=== PATIENT | male | born 1950 | race Caucasian/White ===

== ENCOUNTER → 2024-05-10 | Outpatient (CLI) | payer OTHER ==
[2024-05-10 10:00] LABS: CREATININE 0.8 mg/dL (0.5-1.3); POTASSIUM 4.5 mmol/L (3.5-5.1)
== END | disposition home or self-care (01) ==
LOC: LAB 08:50
PROVIDERS: ATTEND Internal Medicine Cardiovascular Disease
DX: I65.23 Occlusion and stenosis of bilateral carotid arteries (principal)
CPT/HCPCS: 36415; 80048

== ENCOUNTER → 2024-05-14 | Outpatient (CLI) | payer OTHER ==
[~2024-05-14] MED LIST: IOHEXOL-350 75 ML VIAL IV ONE
== END | disposition home or self-care (01) ==
LOC: RAH 10:32
PROVIDERS: ATTEND Internal Medicine Cardiovascular Disease
DX: I65.23 Occlusion and stenosis of bilateral carotid arteries (principal); M47.812 Spondylosis without myelopathy or radiculopathy, cervical region
CPT/HCPCS: 70498; Q9967

== ENCOUNTER → 2024-09-11 | Outpatient (CLI) | payer OTHER ==
[2024-09-11 12:24] LABS: CREATININE 0.8 mg/dL (0.5-1.3); POTASSIUM 4.8 mmol/L (3.5-5.1)
== END | disposition home or self-care (01) ==
LOC: LAB 10:23
PROVIDERS: ATTEND Internal Medicine Cardiovascular Disease
DX: I25.110 Atherosclerotic heart disease of native coronary artery with unstable angina pectoris (principal)
CPT/HCPCS: 36415; 80048

== ENCOUNTER → 2024-09-16 | Outpatient (CLI) | payer OTHER ==
[~2024-09-16] MED LIST changes: +IOHEXOL 350 MG/ML 100ML INFUS..BTL IV ONE; -IOHEXOL-350 75 ML VIAL IV ONE; +metoPROLOL tartRATE 1 MG/ML 5ML VIAL IV ONE
--- NOTE | 2024-09-16 14:37 | HMCIMG ---
CT CARDIAC ANGIO W/CONT. CCTA HISTORY: No additional history given. COMPARISON: None TECHNIQUE: Multiple sequential axial images of the chest were obtained along with the CT angiogram of the chest study. Patient was given 100 cc of Omnipaque through intravenous route. FINDINGS: There is no evidence of pulmonary nodule or parenchymal disease. No pleural effusion or pericardial effusion is seen. There is no evidence of pneumothorax. There are normal size mediastinal and hilar lymph nodes. The heart is not enlarged. Coronary arterial calcifications are seen. Degenerative changes of the thoracolumbar spine are present. IMPRESSION: 1. No evidence of pulmonary nodule or effusion is seen. Please see CT angiogram report of coronary arteries.
== END | disposition home or self-care (01) ==
LOC: RAH 07:39
PROVIDERS: ATTEND Internal Medicine Cardiovascular Disease
DX: I25.10 Atherosclerotic heart disease of native coronary artery without angina pectoris (principal); M47.815 Spondylosis without myelopathy or radiculopathy, thoracolumbar region
CPT/HCPCS: 75574; J3490 ×2; Q9967

== ENCOUNTER → 2024-10-23 | Outpatient (CLI) | payer OTHER ==
--- NOTE | 2024-10-23 16:43 | HMCIMG ---
MR SPINAL CANAL, LUMBAR WO CON HISTORY: Localized pain COMPARISON: None TECHNIQUE: MRI of the lumbar spine was performed utilizing multiple pulse sequences in axial , coronal and sagittal plane. Patient was not given contrast through intravenous route. FINDINGS: Orthopedic fixation plates and screws are seen traversing the L3, L4, L5 levels causing paramagnetic susceptibility artifacts limiting evaluation. Disc fusion is seen predominating at the L3-4 level. No abnormal signal intensity is seen of the visualized bony structure. No loss of vertebral height is seen. There is straightening of normal lumbar curvature which may be related to muscle spasm or positioning. Degenerative disc signals are present at all lumbar spine levels. Visualized distal conus is unremarkable. At the T12-L1 level, there is spondylotic disc with bilateral ligamentum flavum hypertrophy and right intraspinal synovial cyst measuring 3.9 x 3 mm causing anterior thecal sac compression with bilateral lateral recess stenosis and mild bilateral neural foraminal stenosis. The thecal sac measures approximately 9.4 mm in its anterior posterior dimension. At the L1-L2 level, there is spondylotic disc with mild bilateral ligamentum flavum hypertrophy causing anterior thecal sac compression with bilateral lateral recess stenosis and mild bilateral neural foraminal stenosis. The thecal sac measures approximately 9.1 mm in its anterior posterior dimension. At the L2-3 level, there is spondylotic disc with bilateral ligamentum flavum hypertrophy causing anterior thecal sac compression with bilateral lateral recess stenosis and bilateral neural foraminal stenosis. The thecal sac measures approximately 3.8 mm in its anterior posterior dimension. At the L3-4 level, there is spondylotic disc with laminectomy changes causing anterior thecal sac compression with bilateral lateral recess stenosis and mild bilateral neural foraminal stenosis. The thecal sac measures approximately 8.8 mm in its anterior posterior dimension. At the L4-5 level, there is spondylotic disc laminectomy changes causing anterior thecal sac compression with bilateral lateral recess stenosis and mild bilateral neural foraminal stenosis. The thecal sac measures approximately 8.3 mm in its anterior posterior dimension. At the L5-S1 level, there is spondylotic disc with mild bilateral ligamentum flavum hypertrophy causing anterior thecal sac compression with bilateral lateral recess stenosis and bilateral neural foraminal stenosis. The thecal sac measures approximately 9.9 mm in its anterior posterior dimension. IMPRESSION: 1. DJD of the lumbar spine spondylosis and postop changes as described above.
== END | disposition home or self-care (01) ==
LOC: RAH 13:48
PROVIDERS: ATTEND Family Medicine
DX: M47.816 Spondylosis without myelopathy or radiculopathy, lumbar region (principal); M48.061 Spinal stenosis, lumbar region without neurogenic claudication; M48.07 Spinal stenosis, lumbosacral region; M43.26 Fusion of spine, lumbar region; M51.26 Other intervertebral disc displacement, lumbar region; M96.1 Postlaminectomy syndrome, not elsewhere classified
CPT/HCPCS: 72148

== ENCOUNTER 2024-11-18 06:20 | Day surgery (SDC) | payer OTHER ==
[2024-11-14 10:10] VITALS: BP 149/66; PULSE 84; RESP 18; TEMP 98.1
--- NOTE | 2024-11-14 12:46 | HMCIMG ---
CHEST 1VW HISTORY: Preop COMPARISON: None FINDINGS: A frontal projection of the chest was obtained. No acute pulmonary infiltrates is seen. The heart is borderline enlarged. Prominent interstitial markings are seen. Degenerative changes are seen. Aortic calcifications are seen. IMPRESSION: 1. No acute pulmonary infiltrate is seen.
--- NOTE | 2024-11-14 12:54 | EKG ---
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
[2024-11-15 10:08] LABS: BASOPHILS # (AUTO) 0.02 K/uL (0.00-0.20); BASOPHILS % (AUTO) 0.6 % (0.0-5.0); EOSINOPHILS % (AUTO) 2.9 % (0.0-8.0); HEMATOCRIT 46.9 % (42-54); IMMATURE GRANULOCYTE ABSOLUTE 0.01 K/uL (0-1); LYMPHOCYTES % (AUTO) 28.8 % (21.0-51.0); MEAN CORPUSCULAR HGB CONC 33.7 g/dL (32.0-36.0); MONOCYTES # (AUTO) 0.3 K/uL (0.1-1.0); NEUTROPHILS % (AUTO) 58.4 % (40.0-77.0); PLATELET COUNT (AUTO) 129 K/uL (130-400); RED BLOOD CELL COUNT(AUTO) 4.51 MIL/uL (4.50-6.20); RED CELL DISTRIBUTION WIDTH 14.3 % (11.0-15.5); WHITE BLOOD COUNT (AUTO) 3.4 K/uL (4.8-10.8)
[2024-11-15 10:15] LABS: CREATININE 0.9 mg/dL (0.5-1.3); POTASSIUM 4.4 mmol/L (3.5-5.1)
[2024-11-15 10:22] LABS: INR 1.08 (0.85-1.15); PROTHROMBIN TIME 11.4 SEC (9.6-11.6)
[2024-11-15 10:23] LABS: PARTIAL THROMBOPLASTIN TIME 26.6 SEC (26.3-35.5)
[2024-11-18] VITALS (9 sets, daily range): BP systolic 125–210; BP diastolic 64–90; PULSE 60–82; RESP 16–18; TEMP 97.3–97.9
[~2024-11-18] VITALS: Ht 180.3 cm; Wt 101.6 kg
[~2024-11-18 06:20] MED LIST changes: +ALFU10TA46 PO; +APIX5TAB PO; +ASPI-1443 PO; +ATOR20TA65 PO; +BUDE10.7 IH; +HYDR500C2 PO; -IOHEXOL 350 MG/ML 100ML INFUS..BTL IV ONE; +ISOS30TA92 PO; +PANT40TA54 PO; +RAMI10CA76 PO; +TOPI-257 PO; -metoPROLOL tartRATE 1 MG/ML 5ML VIAL IV ONE
[2024-11-18] MEDS: 0.9%NACL 1000ML 1,000 ML IV SCH (06:53)
[2024-11-18] MEDS ORDERED: LIDOCAINE HCL 400MG/20ML VIAL ONE (08:31)
[2024-11-18] MEDS ORDERED: HEParin-NS 1,000 UNIT/500 ML 1,000 ML IV ONE (08:32)
[2024-11-18] MEDS ORDERED: IOHEXOL 350 MG/ML 100ML INFUS..BTL IV ONE ×2 (08:32→09:47)
[2024-11-18] MEDS ORDERED: HEParin 10,000 UNIT/10ML (1,000 UNIT/ML) VIAL ONE (08:32)
[2024-11-18] MEDS ORDERED: NITROGLYCERIN 50MG VIAL ONE (08:32)
[2024-11-18] MEDS ORDERED: HEParin-NS 1,000 UNIT/500 ML 500 ML IV ONE (08:56)
[2024-11-18] MEDS ORDERED: MIDAZOLAM HCL 1 MG/ML 2ML VIAL ONE ×2 (08:58→09:24)
[2024-11-18] MEDS ORDERED: FENTanyl CITRate PF 50 MCG/1 ML 2ML VIAL ONE ×2 (08:58→09:47)
[2024-11-18] MEDS ORDERED: BIVALIRUDIN 250 MG/VIAL IV ONE (09:50)
[2024-11-18] MEDS ORDERED: ASPIRIN 81 MG EC TAB ONE (10:14)
[2024-11-18] MEDS ORDERED: cloPIDOgrel 300MG TAB ONE (10:14)
[2024-11-18] MEDS ORDERED: GLUCAGON 1MG KIT 1 MG ML IM PRN (11:00)
[2024-11-18] MEDS ORDERED: NITROGLYCERIN 0.4 MG SL TAB SL PRN (11:00)
[2024-11-18] MEDS ORDERED: DEXTROSE 50%-WATER 50 ML DISP.SYRIN IV PRN (11:00)
--- NOTE | 2024-11-18 13:57 | NUR ---
400 ml clear yellow urine output noted
--- NOTE | 2024-11-22 14:25 | PRN ---
PROCEDURES: 1. Right common femoral arterial sheath placement. 2. Selective coronary angiogram. 3. Left heart catheterization. 4. Left ventriculogram. 5. Conscious sedation 6. Bilateral common carotid arteriography 7. Left subclavian arteriogram 8. Lithotripsy angioplasty to proximal mid RCA with the use of a 4 mm x 12 mm shockwave device x8 treatments 9. Drug coated stent placement to mid RCA with the use of a 4 mm x 38 mm sanjay [employer] stent deployed to 4 mm 10. Drug coated stent placement to proximal and mid RCA with the use of a 4 mm x 18 mm [employer] [place] sanjay stent deployed to 4 mm 11. Intravascular ultrasound of proximal mid RCA INDICATION: Abnormal stress test for ischemia Severe bilateral carotid artery disease DESCRIPTION OF PROCEDURE: The patient was brought to the catheterization suite and prepped and draped in sterile fashion. IV was started, and not already in place and both groins were exposed for arterial access. 1% lidocaine was used for local anesthesia and then a micropuncture kit was used to gain access once free-flowing blood was seen, modified Seldinger technique was utilized to place a 6 Nepalese sheath into the right common femoral artery. Next, preformed JL4 and JR 4 catheters were used to selectively engage the kaibab coronary vessels and multiple hand contrast injections were performed in different views to define the coronary anatomy. Next a JR4 catheter was then used to selectively engage the right common carotid artery then left common carotid artery and left subclavian artery and contrast injections were performed to define the cerebral anatomy and carotid arterial system. Next a 6 Nepalese angled pigtail was then used across aortic valve pressure measurements were obtained and a left ventricular done in the 30 BORRERO position. FINDINGS: The left main artery bifurcates into the LAD and left circumflex and is free of any significant disease The left anterior descending artery in its proximal mid and distal segment is free of any significant disease with the apical diffuse disease noted in the LAD. Diagonal branch 1. Has a 30-50% mid stenosis. The mid left circumflex is calcified with 50-55% stenosis present. The right coronary artery in its proximal mid and distal segment is calcified with evidence of moderate stenosis involving the entire region which is severely calcified between 58-75%. LVEDP is 16 mmHg. Ejection fraction is 65%. There was no evidence of aortic stenosis or mitral regurgitation. Carotid arteriography reveals a 100% occlusion noted of the ostial and proximal portion of right internal carotid artery with large external carotid artery and vertebral artery providing collateral flow. There is a 90-95% stenosis noted of the proximal left internal carotid artery. Bilateral vertebral arteries are no natalie to be patent. INTERVENTIONAL REPORT: After diagnostic angiography was performed it was felt further evaluation should be done of proximal mid RCA as it was severely calcified and there appeared to be some reasons which seemed to be more than 75% stenosed. Therefore a 6 Nepalese JR4 guide catheter was placed into the right coronary artery. Initial IFR spot was attempted but electrical system in lab would not work therefore we then were able to connect therefore an 014 in run-through wire was then placed in the distal RPL under fluoroscopic guidance. Next intravascular ultrasound catheter and we did interrogate the proximal and proximal midportion of RCA before IVUS catheter would not cross however in the region that we did see there was greater than 270 degree arc of calcium in a vessel that was greater than 4 5-5 mm in diameter. There was a greater than 75% stenosis measured and it was felt intervention was appropriate. We initially went in with a 2.5 mm x 30 mm balloon and pre-dilated the proximal mid RCA to make a tract for lithotripsy balloon. This was done up to 2.55 mm. Next a 4 mm x 12 mm shockwave balloon was then placed in the mid distal RCA in an overlapping fashion shockwave lithotripsy was performed from mid distal mid to proximal RCA. A total of 8 treatments were administered. Next a 4 mm x 38 mm sanjay [employer] stent was then placed in the mid distal RCA and deployed to 4 mm. This was followed by placement of a 4 mm x 18 mm sanjay [employer] [place] stent in an overlapping fashion with the proximal segment deployed to 4 mm. Follow up contrast injection with no evidence of dissection or perforation with SHIVAM 3 flow noted. At end of case closure system was utilized and no complications occurred. RECOMMENDATIONS: Continue with dual antiplatelet therapy. Patient's films have been reviewed with Dr. Anam ssoa and he will see patient in the morning regarding possible TCAR for left carotid stenosis with 100% occlusion of right internal carotid artery OSIEL PEREZ MD November 22, 2024 14:25
== END 2024-11-18 13:58 | disposition home or self-care (01) ==
LOC: DAH 06:20
PROVIDERS: ATTEND Internal Medicine Cardiovascular Disease
DX: R94.39 Abnormal result of other cardiovascular function study (principal); I65.23 Occlusion and stenosis of bilateral carotid arteries; I25.110 Atherosclerotic heart disease of native coronary artery with unstable angina pectoris; I48.0 Paroxysmal atrial fibrillation; I87.2 Venous insufficiency (chronic) (peripheral); I10 Essential (primary) hypertension; E78.49 Other hyperlipidemia; J44.9 Chronic obstructive pulmonary disease, unspecified; N40.0 Benign prostatic hyperplasia without lower urinary tract symptoms; G89.29 Other chronic pain; E66.9 Obesity, unspecified; Z98.890 Other specified postprocedural states; Z82.49 Family history of ischemic heart disease and other diseases of the circulatory system; Z83.3 Family history of diabetes mellitus; Z80.9 Family history of malignant neoplasm, unspecified; Z68.32 Body mass index [BMI] 32.0-32.9, adult; Z79.899 Other long term (current) drug therapy; Z79.82 Long term (current) use of aspirin; Z79.01 Long term (current) use of anticoagulants; Z86.73 Personal history of transient ischemic attack (TIA), and cerebral infarction without residual deficits
CPT/HCPCS: 36223; 36225; 36415; 71045; 80048; 85025; 85610; 85730; 92972; 92978; 93005; 93458; 99156; 99157; A4606; C1887; C1894; C9600; J0583; J1644; J2250; J3010; J3490; Q9967; A4215; A4216; A4221; A4222; A4223; A4663; C1725; C1753; C1760; C1761; C1769; C1874; Q9965

== ENCOUNTER 2024-12-24 08:00 | Inpatient (IN) | payer OTHER ==
[~2024-12-24] VITALS: Ht 181.6 cm; Wt 101.2 kg
[2024-12-24 08:52] LABS: BASOPHILS # (AUTO) 0.01 K/uL (0.00-0.20); BASOPHILS % (AUTO) 0.3 % (0.0-5.0); EOSINOPHILS % (AUTO) 2.6 % (0.0-8.0); HEMATOCRIT 46.6 % (42-54); IMMATURE GRANULOCYTE ABSOLUTE 0.02 K/uL (0-1); LYMPHOCYTES # (AUTO) 0.9 K/uL (1.0-4.8); LYMPHOCYTES % (AUTO) 22.9 % (21.0-51.0); MEAN CORPUSCULAR HEMOGLOBIN 36.4 pg (27.0-33.0); MEAN CORPUSCULAR HGB CONC 34.8 g/dL (32.0-36.0); MEAN CORPUSCULAR VOLUME 104.7 fL (79-99); MONOCYTES # (AUTO) 0.4 K/uL (0.1-1.0); MONOCYTES % (AUTO) 11.2 % (3.0-13.0); NEUTROPHILS # (AUTO) 2.4 K/uL (1.8-7.7); NEUTROPHILS % (AUTO) 62.5 % (40.0-77.0); PLATELET COUNT (AUTO) 111 K/uL (130-400); RED BLOOD CELL COUNT(AUTO) 4.45 MIL/uL (4.50-6.20); RED CELL DISTRIBUTION WIDTH 14.2 % (11.0-15.5); WHITE BLOOD COUNT (AUTO) 3.9 K/uL (4.8-10.8)
[2024-12-24 08:58] LABS: APPEARANCE,URINE CLEAR (CLEAR); BILIRUBIN,URINE NEGATIVE (NEGATIVE); COLOR,URINE LIGHT-YELLOW (YELLOW); GLUCOSE, URINE (UA) NEGATIVE (NEGATIVE); KETONES,URINE NEGATIVE (NEGATIVE); LEUKOCYTE ESTERASE ,URINE NEGATIVE Leu/uL (NEGATIVE); NITRATE,URINE NEGATIVE (NEGATIVE); OCCULT BLOOD,URINE NEGATIVE (NEGATIVE); PROTEIN,URINE NEGATIVE (NEGATIVE); UROBILINOGEN,URINE 0.2 mg/dL (0.2-1.0)
[2024-12-24 09:00] LABS: ADD UA MICROSCOPIC NO
[2024-12-24 09:01] VITALS: BP 152/74; PULSE 85; RESP 17; TEMP 97.4
[2024-12-24 09:04] LABS: CREATININE 0.8 mg/dL (0.5-1.3); INR 1.08 (0.85-1.15); POTASSIUM 4.2 mmol/L (3.5-5.1); PROTHROMBIN TIME 11.4 SEC (9.6-11.6)
[2024-12-24 09:05] LABS: PARTIAL THROMBOPLASTIN TIME 27.7 SEC (26.3-35.5)
--- NOTE | 2024-12-24 10:40 | EKG ---
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
--- NOTE | 2024-12-24 14:47 | HMCIMG ---
CHEST 1VW REASON: PRE OP COMPARISON: 11/14/2024 FINDINGS: Single view of the chest was obtained. Lungs are clear. Heart size is normal. There is no pulmonary vascular congestion. Mediastinum and bony thorax appear unremarkable. IMPRESSION: 1. Normal single view chest x-ray.
[2024-12-27] VITALS (55 sets, daily range): BP systolic 93–162; BP diastolic 45–86; PULSE 63–104; RESP 11–27; TEMP 97.4–98.6; O2SAT 97–99
--- NOTE | 2024-12-27 06:27 | NUR ---
SUSANA NOTED TO LLQ ON ABDOMEN, PT STATES "BUMPED WALL ABOUT A WEEK OR SO AGO". Addendum: 12/27/24 at 06 by SUSY LANG RN RN Amended: Links added.
[2024-12-27] MEDS ORDERED: CLOP75TA32 PO (06:34)
[2024-12-27] MEDS ORDERED: proPOFol 10 MG/ML 20ML VIAL IV ONE ×2 (07:11→08:26)
[2024-12-27] MEDS ORDERED: HEParin 10,000 UNIT/10ML (1,000 UNIT/ML) VIAL ONE (07:11)
[2024-12-27] MEDS ORDERED: HEParin-NS 1,000 UNIT/500 ML 1,500 ML IV ONE (07:11)
[2024-12-27] MEDS ORDERED: rocuRONium bROMide 10MG/1ML 5ML VL ONE ×2 (07:11→07:58)
[2024-12-27] MEDS ORDERED: MIDAZOLAM HCL 1 MG/ML 2ML VIAL ONE (07:11)
[2024-12-27] MEDS ORDERED: FENTanyl CITRate PF 50 MCG/1 ML 2ML VIAL ONE ×2 (07:12→09:11)
[2024-12-27] MEDS ORDERED: ceFAZolin SODIUM 1 GM VIAL ONE ×2 (07:16→07:20)
[2024-12-27] MEDS ORDERED: IODIXANOL 320 MG/ML 100 ML VIAL ONE (07:16)
[2024-12-27] MEDS ORDERED: phenylEPHRINE HCL 10 MG/ML 1ML VIAL IV ONE (07:23)
[2024-12-27] MEDS ORDERED: ATROPINE 1MG SYG IVP ONE ×3 (07:41→08:46)
[2024-12-27] MEDS ORDERED: DOPamine HCL 400 MG/D5%-WATER 0 ML IV ONE (07:41)
[2024-12-27] MEDS ORDERED: ondanSETRON 4MG INJ ONE (09:00)
[2024-12-27] MEDS ORDERED: GLYCOPYRROLATE 0.2 MG/ML 5 ML VIAL ONE (09:11)
[2024-12-27] MEDS ORDERED: NEOSTIGMINE METHYLSULFATE 1MG/ML IV ONE (09:12)
[2024-12-27] MEDS ORDERED: hydrALAZine 20MG/ML VIAL ONE (09:33)
--- NOTE | 2024-12-27 11:13 | HP ---
[facility] PH[facility] Date of Service: Dec 27, 2024 Time of Service: 11:13 HISTORY OF PRESENT ILLNESS: Date of service: 12/27/2024 74-year-old male with underlying history of coronary artery disease with recent history of lithotripsy and angioplasty to proximal-mid RCA on 11/18/2024, history of carotid angiography on 11/18/2024 which showed chronically occluded right ICA with 90-95% left internal carotid artery stenosis, COPD, hypertension, BPH, prior history of right hemispheric CVA in 2010, history of polio, history of paroxysmal atrial fibrillation who is status post TCAR for left carotid artery stenosis. Patient previously underwent stenting to the RCA 11/18/2024 and was found to have 90-95% stenosis of the left internal carotid artery. Patient also was noticed to have chronically occluded right ICA. Postprocedure, patient denies any shortness of breath, chest pain, focal weakness of upper or lower extremities. Patient is followed by Dr. Mcneill likely polycythemia and is maintained on chronic therapy with hydroxyurea. Patient will be monitored closely under hospitalist service. Patient will continue with close neuro checks as well. REVIEW OF SYSTEMS CONSTITUTIONAL: Denies fevers, chills, or night sweats. No unintentional weight loss reported. NEUROLOGICAL: Denies headache, amaurosis fugax, motor weakness, sensory defici t, vertigo/spinning sensation, gait abnormalities, or tremors. ENT: No hearing loss, otalgia, otorrhea, rhinitis, rhinorrhea, hoarseness, or sore throat. CARDIOVASCULAR: Denies any exertional angina, dyspnea on exertion, orthopnea, paroxysmal nocturnal dyspnea, palpitations, life-threatening arrhythmias, claudication. PULMONARY: Denies any shortness of breath, cough, phlegm/sputum, hemoptysis, pleuritic chest pain. SLEEP: Denies morning headaches, daytime somnolence or napping. Denies difficulty falling asleep, staying asleep, waking from sleep. Denies knowledge of snoring. GASTROINTESTINAL: Denies any type of dysphagia to either liquids or solids. Denies nausea, vomiting, pyrosis, early satiety, abdominal pain, diarrhea, constipation, or changes in stool consistency or caliber. Denies coffee-ground emesis, hematemesis, hematochezia, or melanotic stools. GENITOURINARY: Denies frequency, urgency, nocturia, hematuria or incontinence (Storage/Irritative symptoms.) Low urinary stream, straining to void, urinary intermittency or hesitancy, splitting of the voiding stream, terminal dribbling. ENDOCRINOLOGIC: Denies polyuria, polydipsia, polyphagia or heat/cold intolerances. HEMATOLOGIC: Denies thrombophilia/previous clots, or coagulopathy/bleeding disorders. ONCOLOGIC: Denies personal history of malignancy. DERMATOLOGIC: Denies rashes or pruritus. PSYCHIATRIC: Denies any suicidal or homicidal ideation. Denies hallucinations. PAST MEDICAL HISTORY: Hypertension, hyperlipidemia, BPH, remote history of right hemispheric CVA in 2010, previous history of tobacco use and quit in 2010, history of COPD, history of polio, history of melanoma, venous insufficiency, chronic lower back pain, history of paroxysmal atrial fibrillation in 2021, history of coronary artery disease with recent lithotripsy, angioplasty and stent placement to proximal RCA and mid RCA PAST SURGICAL HISTORY: History of lower back surgery, history of cancer removal, history of coronary angiography on 11/18/2024 PAST SOCIAL HISTORY: Previously used to smoke and quit in 2010, used to drink moderately and quit in 2010 as well, patient is ambulatory at home and denies any recent significant falls FAMILY HISTORY: Denies pertinent family history Coded Allergies: No Known Drug Allergies (Unverified Allergy, Unknown, 11/14/24) PHYSICAL EXAM GENERAL APPEARANCE: The patient is awake, alert, and oriented, in no acute cardiopulmonary distress. Patient with 2 L of NC NEUROLOGICAL: CN intact. Not able to thoroughly obtain lower extremity strength assessment as patient is on bedrest post TCAR HEENT: Face is symmetric. Pupils are equal and reactive. Extraocular movements are intact. NECK: Supple. No JVD. No thyromegaly. No submental, submandibular, pre- /postauricular, occipital or supraclavicular lymphadenopathy. CHEST: Normal chest expansion. No Telemetry. LUNGS: Absence of any rales, rhonchi or any wheezing. CARDIOVASCULAR: Regular. S1 and S2 normal. No appreciable rubs, murmurs or gallops. ABDOMEN: Soft, nontender, and nondistended. There is no rebound, voluntary guarding, or rigidity. EXTREMITIES: Non-edematous and not cyanotic. No clubbing. Good capillary refill. SKIN: No skin breakdown. Vital Sign (Last 24 Hours) 6/6/25 6/6/25 06:15 11:00 Temp 98.1 Pulse 74 Resp 18 B/P (MAP) 109/60 Pulse Ox 98 O2 Delivery Nasal Cannula* O2 Flow Rate 2 FiO2 28 LABS: Lab Work from 12/24/2024 shows: WBC count of 3900, hemoglobin 16.2, MCV of 104.7, platelet count of 111. BMP remarkable for sodium of 144, potassium 4.2, chloride of 110, BUN of 21 , creatinine of 0.8. Current Medications Medications (Trade) Dose Ordered Sig/Mariya Route PRN Reason Start Time Stop Time Status Last Admin Dose Admin Acetaminophen (TYLenol 325MG TAB) 650 mg Q8H PRN PO MILD PAIN (1-3) 12/27/24 11:30 01/26/25 11:29 Acetaminophen/ Codeine Phosphate (TYLenol-coDEINE TAB) 1 tab Q8H PRN PO MODERATE PAIN (4-6) 12/27/24 11:30 01/26/25 11:29 Atorvastatin Calcium (LIPItor 20MG) 20 mg DAILY PO 12/28/24 09:00 01/27/25 08:59 Cefazolin Sodium (ANCEF 1 gm vial) 1 gm Q8H IVPB 12/27/24 16:00 12/28/24 00:01 Clopidogrel Bisulfate (plaVIX 75MG) 75 mg DAILY PO 12/28/24 09:00 01/27/25 08:59 Home Med (Home Medication) DAILY IH 12/28/24 09:00 01/27/25 08:59 Home Med (Home Medication) HS PO 12/27/24 21:00 01/26/25 20:59 Hydroxyurea (HYDrea 500MG CAP) 500 mg DAILYBKFST PO 12/28/24 08:00 01/27/25 07:59 Isosorbide Mononitrate (Imdur 30mg Sr) 30 mg DAILY PO 12/28/24 09:00 01/27/25 08:59 Lisinopril (Prinivil 40mg) 40 mg DAILY PO 12/28/24 09:00 01/27/25 08:59 Magnesium Sulfate 50 ml @ 0 mls/hr PROTOCOL IV 12/27/24 11:30 01/26/25 11:29 Miscellaneous Medication (Ramipril ) 20 mg DAILY PO 12/28/24 09:00 12/27/24 09:28 DC Nitroglycerin/ Dextrose 250 ml @ 0 mls/hr PROTOCOL IV 12/27/24 09:30 01/26/25 09:29 Norepinephrine 250 ml @ 0 mls/hr PROTOCOL IV 12/27/24 09:30 01/26/25 09:29 Ondansetron HCl (zoFRAN 4MG INJ) 4 mg Q6H PRN IVP NAUSEA/VOMITING 12/27/24 11:30 01/26/25 11:29 Pantoprazole Sodium (PROTonix 40MG TAB) 40 mg DAILY PO 12/28/24 09:00 01/27/25 08:59 Potassium Chloride 100 ml @ 100 mls/hr AD PRN IV POTASSIUM PROTOCOL 12/27/24 11:30 01/26/25 11:29 Potassium Chloride (K-Dur/Klor-Con 20meq) 20 meq AD PRN PO POTASSIUM PROTOCOL 12/27/24 11:30 01/26/25 11:29 Potassium Chloride (KCl 10% Elixir 20meq/15ml) 20 meq AD PRN PO POTASSIUM PROTOCOL 12/27/24 11:30 01/26/25 11:29 Sodium Chloride 1,000 ml @ 150 mls/hr AD IV 12/27/24 09:30 12/28/24 06:00 Topiramate (TopaMAX) 25 mg BID PO 12/27/24 21:00 01/26/25 20:59 DIAGNOSTICS / RADIOLOGY: SERVICE 0810 REASON: PRE OP ORDERING PHYSICIAN: Leanna MILLER II, MD PROCEDURE: CXR1VW - CHEST 1VW CHEST 1VW REASON: PRE OP COMPARISON: 11/14/2024 FINDINGS: Single view of the chest was obtained. Lungs are clear. Heart size is normal. There is no pulmonary vascular congestion. Mediastinum and bony thorax appear unremarkable. IMPRESSION: 1. Normal single view chest x-ray. DICTATED BY: JERAMIE SWEENEY MD DATE: 12/24/241443 ELECTRONICALLY SIGNED BY: JERAMIE SWEENEY MD DATE: 12/24/241446 ASSESSMENT: Status post left TCAR by Dr. Miller, 12/27/2024 History of 90-95% left ICA stenosis, POA History of chronically occluded right ICA, POA Prior history of right hemispheric CVA in 2011, POA History of suspected polycythemia on treatment with hydroxyurea, POA Mild thrombocytopenia, POA History of COPD, POA Obesity, POA History of polio, POA History of coronary artery disease with recent history of PCI to proximal and mid RCA, POA History of chronic therapy with Eliquis, POA History of paroxysmal atrial fibrillation, POA PLAN: Patient will continue with close monitoring in CCU Continue with close neurologic monitoring and postoperative care per recommendations by Dr. Miller, patient will continue with groin precautions Continue with blood pressure recommendations by Cardiology, patient has prn orders for Levophed and nitro drip We will monitor closely for signs of bleeding Plavix has been resumed and Eliquis will be held tonight per recommendations by Dr. Miller We will continue with rest of the home medications including ramipril, Plavix, Protonix starting tomorrow Tylenol with codeine for moderate pain All labs will be repeated in the morning, we will check a vitamin B12, folic acid, TSH level as well given macrocytosis and mild thrombocytopenia, patient to continue with outpatient Hematology follow up Date of service: 12/27/2024 Plan of care was discussed with patient and at bedside, Yogesh Ku MD Advanced Care Planning: Which of the following were discussed: Hospice care: Yes __ No _X_ Therapeutic options: Yes _X_ No __ Advance directives: Yes _X_ No __ Other discussions: Discussed with who?: Patient Voluntary nature of this service was explained to the patient? Yes _x_ No __ Amount of time spent: 20 minutes YOGESH KU MD Dec 27, 2024 11:13
[2024-12-27] MEDS: acetaMINOPHEN WITH coDEINE 1 TAB TAB PO PRN (11:23)
[2024-12-27] MEDS ORDERED: acetaMINOPHEN 325 MG TAB PO PRN (11:30)
[2024-12-27] MEDS ORDERED: IpraTROPium 0.5 MG/2.5 ML INH IH PRN (11:30)
[2024-12-27] MEDS ORDERED: PoTASSium chloRIDE 20MEQ/100ML 100 ML IV PRN (11:30)
[2024-12-27] MEDS ORDERED: PoTASSium chl 10% ELIXIR 20MEQ 20 MEQ/15 ML UDCUP PO PRN (11:30)
[2024-12-27] MEDS ORDERED: ondanSETRON 4MG INJ IVP PRN (11:30)
[2024-12-27] MEDS: NOREPINEPHRINE IV SCH (11:38)
[2024-12-27] MEDS: SODIUM CHLORIDE IV SCH (11:38)
--- NOTE | 2024-12-27 12:45 | NUR ---
SATURATED DRESSING NOTED DRESSING TO LEFT NECK SURGICAL SITE WAS SATURATED. TRANSPORTER DRIVER CALLED AND NURSE CAME TO ASSESS SITE. Beth MENG LOW VOLTAGE TECHNICIAN AT BEDSIDE, DRESSING REMOVED, QUICKCLOT APPLIED, 4X4 AND MEDIPORE TAPE. PRESSURE APPLIED X 10 MIN. [facility] CALLED TO NOTIFY DR. MILLER, LEFT MESSAGE IN ANSWERING SERVICE.
--- NOTE | 2024-12-27 13:30 | NUR ---
[facility] NOTIFIED OF SATURATED DRESSING. See [employer] SUPERVISOR CALLED AND NOTIFIED PT HAD SATURATED DRESSING TO LEFT NECK SURGICAL SITE. NO HEMATOMA NOTED UPON REMOVAL OF DRESSING PT HAD SMALL SKIN TEAR AND HAD SOME SUPERFICIAL BLEEDING UNDER SKIN. QUICKCLOT DRESSING 4X4 AND MEDIPORE DRESSING APPLIED, 10 MIN MANUAL PRESSURE APPLIED TO SITE. NO NEW ORDERS RECEIVED.
--- NOTE | 2024-12-27 13:50 | NUR ---
DR. CRAMER AT BEDSIDE. DR. CRAMER AT [facility] EUPDATED ON PT'S CONDITION AND BLEEDING FROM SURGICAL SITE SKIN TEAR. PER MD HE WILL ORDER H/H.
--- NOTE | 2024-12-27 14:19 | CONS ---
[facility] CONSULTATION NOTE Date Patient Seen: Dec 27, 2024 Time of Visit: 13:53 Supervising Physician: [ PATT MAURICE MD ] Reason for Consultation: [ CCM ] Primary Care Physician: [JOSE BAL MD ] Outpatient Specialists: [ ] Inpatient Consults: [ ANGELA Oliveira II, MD , [facility] ATTENDING: NISHI YEH ] PROBLEM LIST: Status post left TCAR by Dr. Miller, 12/27/2024 History of 90-95% left ICA stenosis, POA History of chronically occluded right ICA, POA Prior history of right hemispheric CVA in 2010, POA History of suspected polycythemia on treatment with hydroxyurea, POA Mild thrombocytopenia, POA History of COPD, POA Morbid Obesity, BMI 30.7 POA History of polio, POA CAD status post recent PCI with proximal and mid RCA stent, atrial fibrillation chronic anticoagulation with Eliquis last dose 12/24/24 at HS, HPI: This is a 74-year-old obese male with a past medical history of hypertension, BPH, CVA, COPD, polio, melanoma to left perianal region, venous insufficiency, diastolic heart failure with EF of 60-65%, chronic anticoagulation with the Eliquis with last dose three days ago, and CAD status post x2 stents, and carotid stenosis who [place] [facility] [place] SIDE [place]AR on 12/27/24 and admitted to the ICU postoperative. We are consulted for critical care management. On assessment patient is awake alert and oriented x3. Dressing to left side of the neck saturated with blood. Dressing was removed and small skin tear proximal from site oozing bloody drainage. Purple ecchymosis noted but no hematoma for induration upon palpation. Incision well approximated and no oozing from site. Ordered for quick clot dressing for now and monitor H&H and any further signs of bleeding. Per RN sprinkler driver [employer] Genoveva Lucia was made aware, no further orders at this time. Patient is hemodynamically stable blood pressure 122/52 on arterial line, he is off pressors. Heart rate in the 70s respiratory rate of 14 unlabored saturating 97% on 2 L and afebrile. On laboratory white count is 3.9 H&H stable 16.2 over 46.6 preop. Chemistry kidneys are doing well creatinine 0.8 with a GFR of 93 glucose 150 mg/dL BUN 21. Patient denies any sore throat, shortness of breaths or wheezing. On behalf of [facility] thank you for given us the opportunity to participate in the care of this patient. PAST MEDICAL HX: see above PAST SURGICAL HX: noncontributory SOCIAL HISTORY: No tobacco, ETOH, or illicit drug use Coded Allergies: No Known Drug Allergies (Unverified Allergy, Unknown, 11/14/24) REVIEW OF SYSTEMS: General: No malaise or fever. Neurological: No fainting episodes or seizures. HEENT: No nasal congestion or nasal secretion. Cardiac: No chest pain or palpitations. Gastrointestinal: No vomiting or diarrhea. Respiratory: No shortness a breath with a in our coughing. Skin: No rashes or lesions. Hematological: No bruises or bleeding. Musculoskeletal: No joint pains or arthralgias. Psychiatric: No depression or panic attacks. PHYSICAL EXAM: GENERAL: alert, weak, awake oriented x 3 HEENT: EOMI, Sclera non icteric, moist mucosa NECK: Supple, no JVD, trachea midline, dressing to left side of the neck, no hematoma or stridor. LUNGS: Clear breath sounds bilaterally. No wheezes HEART: Regular rate and rhythm. Normal S1 and S2, without murmurs ABD: Abdomen soft, nontender. Bowel sounds present EXT: No clubbing cyanosis or edema NEURO: Alert and oriented to person, follows commands Vital Signs (last 8hr) Date Time Temp Pulse Resp B/P (MAP) Pulse Ox O2 Delivery O2 Flow Rate FiO2 12/27/24 13:15 76 14 122/52 (75) 97 119/63 (81) 12/27/24 13:00 76 15 131/57 (81) 97 123/66 (85) 12/27/24 12:45 76 13 138/58 (84) 97 125/61 (82) 12/27/24 12:30 67 14 139/56 (83) 97 134/86 (102) 12/27/24 12:28 76 13 138/58 (84) 97 125/61 (82) 12/27/24 12:15 72 24 160/63 (95) 97 129/57 (81) 12/27/24 12:13 67 14 139/56 (83) 97 134/86 (102) 12/27/24 12:00 98.1 71 15 154/67 (96) 97 120/55 (76) 12/27/24 11:45 63 12 109/48 (68) 98 93/50 (64) 12/27/24 11:38 103/46 12/27/24 11:30 63 12 93/50 98 Nasal Cannula 2.0 12/27/24 11:15 74 11 112/59 98 Nasal Cannula 2.0 12/27/24 11:00 98 Nasal Cannula* 2 28 12/27/24 11:00 75 14 140/59 97 Nasal Cannula 2.0 12/27/24 10:45 73 25 148/60 99 Nasal Cannula 2.0 12/27/24 10:30 76 15 120/71 97 Nasal Cannula 2.0 12/27/24 10:15 76 12 120/74 100 Nonrebreathing Mask 10.0 12/27/24 10:00 76 12 123/75 100 Nonrebreathing Mask 10.0 12/27/24 09:45 97.3 76 12 137/72 100 Nonrebreathing Mask 10.0 12/27/24 06:15 98.1 74 18 109/60 94 Room Air 21 LABS: Pending DIAGNOSTICS / RADIOLOGY RESULTS: [ Signed PATIENT: BEAU NAIR MR#: [id number] : 1950 SEX: M AGE: 74 LOCATION: ORDER 0 STATUS: PRE IN REPORT#: [id number] SERVICE [id number] REASON: PRE OP ORDERING PHYSICIAN: Leanna MILLER II, MD PROCEDURE: CXR1VW - CHEST 1VW CHEST 1VW REASON: PRE OP COMPARISON: 11/14/2024 FINDINGS: Single view of the chest was obtained. Lungs are clear. Heart size is normal. There is no pulmonary vascular congestion. Mediastinum and bony thorax appear unremarkable. IMPRESSION: 1. Normal single view chest x-ray. DICTATED BY: JERAMIE SWEENEY MD DATE: 12/24/241443 ELECTRONICALLY SIGNED BY: JERAMIE SWEENEY MD DATE: 12/24/241446 ] PLAN Admitted to the ICU per hospitalist team Follow cardiology recommendations Maintain systolic blood pressure between 140-160 per Cardiology recommendations Follow cardiology recommendations Continuous Cardiac telemetry monitoring Monitor dressing to right side of the neck and neck for any hematoma or bruising Monitor respiratory status closely Monitor neurological status closely DVT and GI prophylaxis Nicotine patch14 mg daily Education regarding smoking cessation DAPT per Cardiology recommendation with aspirin and Plavix Statin Reconcile patient's home medication Quick clot dressing to left side of the neck. NEURO: Minimize central acting medications as possible. Fall Precautions. Well lighted room through the day and minimize interruptions through the night to prevent acute delirium. PULMONARY: Supplemental 02 as needed Titrate Fio2 to keep Spo2 > or = 90% DuoNebs and CPT as needed IS hourly while awake for pulmonary hygiene Out of bed to chair as tolerated CARDIOVASCULAR: Follow hemodynamics. Titrate vasopressor to keep MAP >65 or systolic blood pressure >95mmHg DRIPS: Off Levophed LINES: PIV Arterial line GI & NUTRITION: Continue nutritional support Aspirations precautions Prokinetic agents and laxatives as needed KIDNEYS & ELECTROLYTES: Strict monitoring of intake and output Daily weights Avoid nephrotoxic agents Monitor electrolytes and replace as needed Goal urine output of 30mL/hr or 0.5mL/kg/hr ENDOCRINE: Maintain blood glucose between 100-180 at all times. Insulin sliding scale for blood glucose management INFECTIOUS DISEASE: Trend temperature. Fonseca-culture if febrile. Micro: [ ] Antibiotics: [ ] HEMATOLOGY & COAGULATION: Monitor H&H. Keep Hgb > 7 Transfuse 1 unit of PRBC for Hgb < 7 Transfuse 1 pack of platelets of platelets < 20, 000 Watch for any signs and symptoms of bleeding SKIN: Pressure ulcer prevention per facility protocol Rehab: PT/OT Prophylaxis: GI: [ Pepcid] DVT: SCDsscd Code Status: Full Resuscitation Disposition: [ ICU] Other: Total patient care time exceeds 35 minutes excluding all procedures. Case was discussed and seen with my supervising physician. The above plan was formulated and agreed upon. ATTESTATION BY PHYSICIAN I reviewed the documentation, medical decision making, and treatment plan as noted by the mid-level provider above. I agree with the findings and plan of care. Patt Maurice MD, [facility] Dec 27, 2024 14:18
[2024-12-27 14:41] LABS: MEAN CORPUSCULAR HGB CONC 34.1 g/dL (32.0-36.0); MEAN CORPUSCULAR VOLUME 105.4 fL (79-99); PLATELET COUNT (AUTO) 94 K/uL (130-400); RED BLOOD CELL COUNT(AUTO) 3.89 MIL/uL (4.50-6.20); RED CELL DISTRIBUTION WIDTH 14.3 % (11.0-15.5); WHITE BLOOD COUNT (AUTO) 6.5 K/uL (4.8-10.8)
[2024-12-27 15:21] LABS: BASOPHILS # (AUTO) 0.01 K/uL (0.00-0.20); BASOPHILS % (AUTO) 0.2 % (0.0-5.0); EOSINOPHILS # (AUTO) 0.01 K/uL (0.00-0.70); EOSINOPHILS % (AUTO) 0.2 % (0.0-8.0); IMMATURE GRANULOCYTE ABSOLUTE 0.02 K/uL (0-1); LYMPHOCYTES # (AUTO) 0.4 K/uL (1.0-4.8); LYMPHOCYTES % (AUTO) 6.7 % (21.0-51.0); MONOCYTES # (AUTO) 0.4 K/uL (0.1-1.0); MONOCYTES % (AUTO) 5.3 % (3.0-13.0); NEUTROPHILS # (AUTO) 5.7 K/uL (1.8-7.7); NEUTROPHILS % (AUTO) 87.3 % (40.0-77.0)
[2024-12-27 15:44] LABS: INR 1.08 (0.85-1.15); PROTHROMBIN TIME 11.4 SEC (9.6-11.6)
[2024-12-27 15:46] LABS: PARTIAL THROMBOPLASTIN TIME 26.8 SEC (26.3-35.5)
[2024-12-27] MEDS: 0.9%NACL 1000ML 1,000 ML IV SCH (16:07)
[2024-12-27] MEDS: ceFAZolin SODIUM 1 GM VIAL IVPB SCH (16:07)
[2024-12-27] MEDS: HOME MEDICATION 1 EACH PO SCH (19:50)
[2024-12-27] MEDS: topIRAMate 25 MG TABLET PO SCH (19:56)
--- NOTE | 2024-12-27 20:15 | PR ---
PROCEDURES: * Selective left carotid artery angiogram. * Left carotid artery balloon angioplasty. * Left carotid artery stent placement with a [employer] 7 x 30 self-expanding stent. * Ultrasound-guided access of the right common femoral vein with placement of an 8-Congolese sheath in a retrograde fashion with modified Seldinger technique. * Left common carotid artery exposure and repair to be dictated separately by Dr. Mercado. INDICATIONS: * Critical carotid artery stenosis with 100% chronic occlusion of the right internal carotid artery and 90% left internal carotid artery stenosis. * Hyperlipoproteinemia. * Coronary artery disease. COMPLICATIONS: None. TOTAL CONTRAST: Approximately 30 mL. ANESTHESIA: General anesthesia with intraarticular intubation. OPERATORS: Roslyn Mast II, MD/Rayna Mercado MD DESCRIPTION OF PROCEDURE: The patient was seen in the cardiac wharf labourer after appropriate operative consents were signed. He was prepped and draped in the usual fashion. After anesthesia was induced, the right common femoral vein was accessed utilizing ultrasound guidance. An 8-Congolese TCAR sheath was advanced in the right common femoral vein in a retrograde fashion with modified Seldinger technique. Dr. Mercado was kind enough to proceed with exposure of the vessel. The vessel was then controlled. Dr. Mast took over the procedure. At this point, the left common carotid artery was accessed after full heparinization, attainment of appropriate ACT. The angiography sheath was then introduced and angiography was performed of the left carotid artery identifying a left normal, carotid artery and critical stenosis in the proximal portion of the left internal carotid artery, which was calcified. The intracerebral circulation was patent. At this point, we were able to exchange for the [address] 8-Congolese sheath, which was placed in the proximal left common carotid artery. ____ was then started and the vessel was clamped. The clamping was performed proximal to the sheath access. At this point, we were able to advance a 0.014 wire into the internal carotid artery under fluoroscopic guidance. A 5-mm balloon was advanced and placed in the area of stenosis and inflated to 8 atmospheres. We then advanced the self-expanding [employer] TCAR stent, which was positioned in the left internal carotid artery and traversed across the ostium of the left external carotid artery and deployed in the main carotid artery from the internal to the main common carotid artery. This was post-dilated with a 5-mm balloon to 14 atmospheres with good final angiographic results. At this point, the procedure was completed, Vascade was utilized for hemostasis of the right common femoral vein. Dr. Mercado performed completion of the repair of the left common carotid artery. The patient tolerated the procedure well, left the cardiac catheterization in stable condition. FINAL IMPRESSION: Successful left carotid TCAR with history of prior chronic total occlusion of the right internal carotid artery. PLAN: Continue medical management. TID: [id number] RECEIPT: [id number]
--- NOTE | 2024-12-27 20:19 | OP ---
DATE OF PROCEDURE: 12/27/2024 TIME: 09:00 a.m. PREOPERATIVE DIAGNOSIS: Left carotid artery stenosis. POSTOPERATIVE DIAGNOSIS: Left carotid artery stenosis. PROCEDURE PERFORMED: 1. Exposure of left common carotid artery right above the clavicle on the left side. 2. Transcarotid arterial revascularization. SURGEON: Rayna Mercado MD BITUMINOUS PAVING MACHINE OPERATOR: Roslyn Mast II MD DESCRIPTION OF PROCEDURE: Following anesthesia induction without any complication and proper evaluation of the operative field, the patient's left neck was prepped and draped in the usual fashion. A small incision was made right above the left clavicle. The sternocleidomastoid muscle was retracted and then we were able to find this avascular plane. We identified the carotid sheath that was opened with electrocautery. Subsequently, the common carotid artery was identified and dissected. After that, a vessel loop was passed around the artery. Heparin dose was given to the patient. A 5-0 Prolene pursestring suture was placed in the anterior surface of the common carotid artery on the left side. After that, we turned the case over to the interventional cardiology team. For more details, please refer to the separately dictated operative report. After they were completed with stenting of the carotid, we took over the case again. We removed the sheath and tied down the 5-0 Prolene pursestring that had been previously placed. After that, hemostasis was obtained and then the wound was closed with 2-0 Vicryl and 4-0 Monocryl suture. I was present throughout the entire operation. The patient tolerated the operation well and transferred to the postanesthesia care unit in stable condition. TID: [id number] RECEIPT: [id number]
[2024-12-28] VITALS (33 sets, daily range): BP systolic 122–188; BP diastolic 56–87; PULSE 69–86; RESP 13–41; TEMP 98–99.1; O2SAT 95–99
[2024-12-28 04:47] LABS: EOSINOPHILS # (AUTO) 0.03 K/uL (0.00-0.70); EOSINOPHILS % (AUTO) 0.6 % (0.0-8.0); HEMATOCRIT 40.5 % (42-54); IMMATURE GRANULOCYTE ABSOLUTE 0.03 K/uL (0-1); LYMPHOCYTES # (AUTO) 0.7 K/uL (1.0-4.8); LYMPHOCYTES % (AUTO) 13.7 % (21.0-51.0); MEAN CORPUSCULAR HEMOGLOBIN 35.9 pg (27.0-33.0); MEAN CORPUSCULAR HGB CONC 33.6 g/dL (32.0-36.0); MEAN CORPUSCULAR VOLUME 106.9 fL (79-99); MONOCYTES # (AUTO) 0.5 K/uL (0.1-1.0); MONOCYTES % (AUTO) 9.7 % (3.0-13.0); NEUTROPHILS % (AUTO) 75.4 % (40.0-77.0); PLATELET COUNT (AUTO) 110 K/uL (130-400); RED BLOOD CELL COUNT(AUTO) 3.79 MIL/uL (4.50-6.20); RED CELL DISTRIBUTION WIDTH 14.5 % (11.0-15.5); WHITE BLOOD COUNT (AUTO) 5.2 K/uL (4.8-10.8)
[2024-12-28 05:26] LABS: ALBUMIN 3.1 g/dL (3.5-5.0); BILIRUBIN,TOTAL 0.8 mg/dL (0.2-1.0); CREATININE 0.7 mg/dL (0.5-1.3); MAGNESIUM 1.8 mg/dL (1.80-2.40); POTASSIUM 3.5 mmol/L (3.5-5.1); THYROID STIMULATING HORMONE 0.57 uIU/mL (0.36-3.74); TOTAL PROTEIN, SERUM 5.6 g/dL (6.0-8.3)
[2024-12-28] MEDS: PoTASSium chloRIDE 20MEQ ER 20 MEQ ERTAB PO PRN (05:35)
[2024-12-28] MEDS: MAGNESIUM 2GM PREMIX 50ML 50 ML IV SCH (05:35)
[2024-12-28] MEDS: NITROGLYCERIN 50MG/D5W 250ML 250 BOT IV SCH (05:55)
[2024-12-28] MEDS ORDERED: hydROXYurea 500 MG CAP PO SCH (08:00)
[2024-12-28] MEDS: cloPIDOgrel 75MG TAB PO SCH (08:06)
[2024-12-28] MEDS: ISOSORBIDE MONO 30MG SR TAB PO SCH (08:07)
[2024-12-28] MEDS: LISINOPRIL 40 MG TABLET PO SCH (08:07)
[2024-12-28] MEDS: atorVAStatin 20 MG TABLET PO SCH (08:07)
[2024-12-28] MEDS: FAMOTIDINE 20MG TAB PO SCH (08:07)
[2024-12-28] MEDS ORDERED: RAMIPRIL 20 MG PO SCH (09:00)
[2024-12-28] MEDS: ANORO ELLIPTA IH SCH (09:00)
[2024-12-28] MEDS ORDERED: PANTOPrazole 40 MG TAB DR PO SCH (09:00)
[2024-12-28] MEDS: hydROXYurea 500 MG CAP PO SCH (09:01)
[2024-12-28] MEDS: PoTASSium chloRIDE 20MEQ ER 20 MEQ ERTAB PO ONE ×2 (09:30→14:21)
--- NOTE | 2024-12-28 10:30 | PN ---
[facility] PROGRESS NOTE Date Patient Seen: Dec 28, 2024 Time of Visit: 10:29 Supervising Physician: [DANIEL RUBIN MD ] Primary Care Physician: [JOSE BAL MD ] Outpatient Specialists: [ ] Inpatient Consults: [ ANGELA Oliveira II, MD , BIS ATTENDING: NISHI YEH ] PROBLEM LIST: Status post left TCAR by Dr. Mast, 12/27/2024 History of 90-95% left ICA stenosis, POA History of chronically occluded right ICA, POA Prior history of right hemispheric CVA in 2010, POA History of suspected polycythemia on treatment with hydroxyurea, POA Mild thrombocytopenia, POA History of COPD, POA Morbid Obesity, BMI 30.7 POA History of polio, POA CAD status post recent PCI with proximal and mid RCA stent, atrial fibrillation chronic anticoagulation with Eliquis last dose 12/24/24 at HS, INTERVAL HISTORY: Pt recovering well. hemodynamically stable. no further bleeding reported. Dressing to left TCAR site CDI. He has been tolerating diet. He has been walking with no dizziness or lightheadedness. He i=has no focal weakness, no n=hematoma to site or swelling. Likely DC today per primary team. REVIEW OF SYSTEMS: General: No malaise or fever. Neurological: No fainting episodes or seizures. HEENT: No nasal congestion or nasal secretion. Cardiac: No chest pain or palpitations. Gastrointestinal: No vomiting or diarrhea. Respiratory: No shortness a breath with a in our coughing. Skin: No rashes or lesions. Hematological: No bruises or bleeding. Musculoskeletal: No joint pains or arthralgias. Psychiatric: No depression or panic attacks. PHYSICAL EXAM: GENERAL: alert, weak, awake oriented x 3 HEENT: EOMI, Sclera non icteric, moist mucosa NECK: Supple, no JVD, trachea midline, dressing to left side of the neck, no hematoma or stridor. LUNGS: Clear breath sounds bilaterally. No wheezes HEART: Regular rate and rhythm. Normal S1 and S2, without murmurs ABD: Abdomen soft, nontender. Bowel sounds present EXT: No clubbing cyanosis or edema NEURO: Alert and oriented to person, follows commands Vital Signs (last 8hr) Date Time Temp Pulse Resp B/P (MAP) Pulse Ox O2 Delivery O2 Flow Rate FiO2 12/28/24 09:43 81 13 141/70 (93) 95 21 12/28/24 08:43 78 24 145/72 (96) 94 21 12/28/24 08:28 77 17 151/56 (87) 94 21 12/28/24 08:13 80 14 144/77 (99) 94 21 12/28/24 08:00 99.1 12/28/24 08:00 96 Room Air* 0 21 12/28/24 07:43 78 16 159/82 (107) 95 21 12/28/24 07:28 76 16 147/83 (104) 96 21 12/28/24 07:00 79 23 164/79 (107) 94 12/28/24 06:45 77 18 150/75 (100) 96 12/28/24 06:30 80 20 142/85 (104) 97 12/28/24 06:15 76 16 161/86 (111) 95 12/28/24 06:00 71 15 160/86 (110) 95 12/28/24 05:55 188/85 12/28/24 05:45 72 17 159/83 (108) 95 12/28/24 05:30 77 23 188/85 (119) 96 12/28/24 05:15 83 16 175/87 (116) 97 12/28/24 05:00 83 22 161/80 (107) 95 12/28/24 04:30 73 15 159/80 (106) 96 12/28/24 04:06 18 N/Cannula Low lpm 2.0 12/28/24 04:00 98.1 72 15 139/67 (91) 97 12/28/24 04:00 96 Room Air* 0 12/28/24 03:30 80 18 133/59 (83) 96 12/28/24 03:00 73 15 124/72 (89) 96 12/28/24 02:30 77 17 141/66 (91) 96 LABS: Hematology Labs: Test 12/28/24 04:06 12/27/24 14:28 Range/Units White Blood Count 5.2 4.8-10.8 K/uL Red Blood Count 3.79 L 4.50-6.20 MIL/uL Hemoglobin 13.6 L 14.0-18.0 g/dL Hematocrit 40.5 L 42-54 % Mean Corpuscular Volume 106.9 H 79-99 fL Mean Corpuscular Hemoglobin 35.9 H 27.0-33.0 pg Mean Corpuscular Hemoglobin Concent 33.6 32.0-36.0 g/dL Red Cell Distribution Width 14.5 11.0-15.5 % Platelet Count 110 L 130-400 K/uL Mean Platelet Volume 9.2 7.5-10.5 fL Immature Granulocyte % (Auto) 0.6 0-1 % Neutrophils (%) (Auto) 75.4 40.0-77.0 % Lymphocytes (%) (Auto) 13.7 L 21.0-51.0 % Monocytes (%) (Auto) 9.7 3.0-13.0 % Eosinophils (%) (Auto) 0.6 0.0-8.0 % Basophils (%) (Auto) 0.0 0.0-5.0 % Neutrophils # (Auto) 4.0 1.8-7.7 K/uL Lymphocytes # (Auto) 0.7 L 1.0-4.8 K/uL Monocytes # (Auto) 0.5 0.1-1.0 K/uL Eosinophils # (Auto) 0.03 0.00-0.70 K/uL Basophils # (Auto) 0.00 0.00-0.20 K/uL Absolute Immature Granulocyte (auto 0.03 0-1 K/uL Nucleated Red Blood Cells 0.0 0.0-0.19 % Red Blood Cell Morphology See comments White Cell Morphology Comment See comments Chemistry Labs: Test 12/28/24 04:06 Range/Units Sodium Level 146 H 136-145 mmol/L Potassium Level 3.5 3.5-5.1 mmol/L Chloride Level 113 H 101-111 mmol/L Carbon Dioxide Level 24 21-32 mmol/L Blood Urea Nitrogen 10 7-18 mg/dL Creatinine 0.7 0.5-1.3 mg/dL Glomerular Filtration Rate Calc 97 >90 mL/min Random Glucose 98 70-105 mg/dL Total Calcium 7.5 L 8.5-10.1 mg/dL Magnesium Level 1.80 1.80-2.40 mg/dL Total Bilirubin 0.8 0.2-1.0 mg/dL Aspartate Amino Transf (AST/SGOT) 32 10-37 U/L Alanine Aminotransferase (ALT/SGPT) 30 12-78 U/L Alkaline Phosphatase 57 50-136 U/L Total Protein 5.6 L 6.0-8.3 g/dL Albumin 3.1 L 3.5-5.0 g/dL Vitamin B12 Level 512 193-986 pg/mL Folic Acid (LAB) 12.20 2-20 ng/mL Thyroid Stimulating Hormone (TSH) 0.57 0.36-3.74 uIU/mL Coagulation Labs: Test 12/27/24 14:28 Range/Units Prothrombin Time 11.4 9.6-11.6 SEC Prothromb Time International Ratio 1.08 0.85-1.15 Activated Partial Thromboplast Time 26.8 26.3-35.5 SEC DIAGNOSTICS / RADIOLOGY RESULTS: [ ] PLAN Admitted to the ICU per hospitalist team Follow cardiology recommendations Maintain systolic blood pressure between 140-160 per Cardiology recommendations Follow cardiology recommendations Continuous Cardiac telemetry monitoring Monitor dressing to right side of the neck and neck for any hematoma or bruising Monitor respiratory status closely Monitor neurological status closely DVT and GI prophylaxis Nicotine patch14 mg daily Education regarding smoking cessation DAPT per Cardiology recommendation with aspirin and Plavix Statin Reconcile patient's home medication Quick clot dressing to left side of the neck. NEURO: Minimize central acting medications as possible. Fall Precautions. Well lighted room through the day and minimize interruptions through the night to prevent acute delirium. PULMONARY: Supplemental 02 as needed Titrate Fio2 to keep Spo2 > or = 90% DuoNebs and CPT as needed IS hourly while awake for pulmonary hygiene Out of bed to chair as tolerated CARDIOVASCULAR: Follow hemodynamics. Titrate vasopressor to keep MAP >65 or systolic blood pressure >95mmHg DRIPS: Off Levophed LINES: PIV Arterial line GI & NUTRITION: Continue nutritional support Aspirations precautions Prokinetic agents and laxatives as needed KIDNEYS & ELECTROLYTES: Strict monitoring of intake and output Daily weights Avoid nephrotoxic agents Monitor electrolytes and replace as needed Goal urine output of 30mL/hr or 0.5mL/kg/hr ENDOCRINE: Maintain blood glucose between 100-180 at all times. Insulin sliding scale for blood glucose management INFECTIOUS DISEASE: Trend temperature. Fonseca-culture if febrile. Micro: [ ] Antibiotics: [ ] HEMATOLOGY & COAGULATION: Monitor H&H. Keep Hgb > 7 Transfuse 1 unit of PRBC for Hgb < 7 Transfuse 1 pack of platelets of platelets < 20, 000 Watch for any signs and symptoms of bleeding SKIN: Pressure ulcer prevention per facility protocol Rehab: PT/OT Prophylaxis: GI: [ Pepcid] DVT: SCDsscd Code Status: Full Resuscitation Disposition: [ per primary Other: ATTESTATION BY PHYSICIAN I have evaluated the patient chart, medical records, and spoke with appropriate staff. I reviewed the documentation, medical decision making, and treatment plan as noted by the mid-level provider above. I agree with the findings and plan of care. Daniel Rubin MD, [facility] Dec 28, 2024 10:29
--- NOTE | 2024-12-28 11:11 | DS ---
Discharge Summary Hospital Course Summary: 74-year-old male with underlying history of coronary artery disease with recent history of lithotripsy and angioplasty to proximal RCA on 11/10, history of carotid angiography on 11/10 which showed chronically occluded right ICA with 90-95% left internal carotid artery stenosis, COPD, hypertension, BPH, prior history of right hemispheric CVA in 2010, history of polio, history of paroxysmal atrial fibrillation. Patient previously underwent stenting to the RCA 11/18/2024 and was found to have 90-95% stenosis of the left internal carotid artery. Patient also was noticed to have chronically occluded right ICA. Patient is currently status post TCAR for left carotid artery stenosis December 27, 2024. Hospitalist services requested for medical management. Postprocedure, patient denied any shortness of breath, chest pain, focal weakness of upper or lower extremities. Patient is followed by Dr. Mcneill for polycythemia and is maintained on chronic therapy with hydroxyurea. 12/28 patient is seen and examined at bedside, case discussed with the RN, no acute events overnight, during my visit comfortably in bed, he is alert oriented x3, hemodynamically stable, hemoglobin 13.6, hematocrit 40.5, white blood cell count of 5 two, with a platelet count of 110. CMP shows a sodium 146, potassium 3.5, BUN 10, creatinine 0.7. Albumin 3.1. Examination of the left side of the neck shows no oozing of blood, dressing looks intact, right groin area no hematoma noted. at bedside during my visit PHYSICAL EXAM GENERAL APPEARANCE: The patient is awake, alert, and oriented, in no acute cardiopulmonary distress. Patient with 2 L of NC NEUROLOGICAL: CN intact. Not able to thoroughly obtain lower extremity strength assessment as patient is on bedrest post TCAR HEENT: Face is symmetric. Pupils are equal and reactive. Extraocular movements are intact. NECK: Supple. No JVD. No thyromegaly. No submental, submandibular, pre- /postauricular, occipital or supraclavicular lymphadenopathy. CHEST: Normal chest expansion. No Telemetry. LUNGS: Absence of any rales, rhonchi or any wheezing. CARDIOVASCULAR: Regular. S1 and S2 normal. No appreciable rubs, murmurs or gallops. ABDOMEN: Soft, nontender, and nondistended. There is no rebound, voluntary guarding, or rigidity. EXTREMITIES: Non-edematous and not cyanotic. No clubbing. Good capillary refill. SKIN: No skin breakdown. Procedure(s): Patient is currently status post TCAR for left carotid artery stenosis December 27, 2024. Assessment/Plan: Final diagnosis Status post left TCAR by Dr. Mast, 12/27/2024 History of 90-95% left ICA stenosis, POA History of chronically occluded right ICA, POA Prior history of right hemispheric CVA in 2010, POA History of suspected polycythemia on treatment with hydroxyurea, POA Mild thrombocytopenia, POA History of COPD, POA Obesity, POA History of polio, POA History of coronary artery disease with recent history of PCI to proximal and mid RCA, POA History of chronic therapy with Eliquis, POA History of paroxysmal atrial fibrillation, POA Discharge Instructions: Patient to follow up with Cardiology as an outpatient and to return to the hospital if condition changes, patient agreed with plan and understood the information provided. Home Medications: Reported Medications Clopidogrel Bisulfate (Clopidogrel) 75 Mg Tablet, 1 TAB PO DAILY for 30 Days, #30 TAB 0 Refills 12/27/24 Topiramate (Topiramate) 25 Mg Tablet, 25 MG PO BID, TAB 11/14/24 Apixaban (Eliquis) 5 Mg Tablet, 5 MG PO HS, TAB 11/14/24 Isosorbide Mononitrate (Isosorbide Mononitrate ER) 30 Mg Tab.er.24h, 30 MG PO DAILY, TAB 11/14/24 Pantoprazole Sodium (Pantoprazole Sodium) 40 Mg Tablet.dr, 40 MG PO DAILY, TAB 11/14/24 Ramipril (Ramipril) 10 Mg Capsule, 20 MG PO DAILY, CAP 11/14/24 Hydroxyurea (Hydroxyurea) 500 Mg Capsule, 500 MG PO DAILYBKFST, CAP 11/14/24 Atorvastatin Calcium (Atorvastatin Calcium) 20 Mg Tablet, 20 MG PO DAILY, TAB 11/14/24 Alfuzosin HCl (Alfuzosin HCl) 10 Mg Tab.er.24h, 10 MG PO HS, TAB 11/14/24 Aspirin (Aspirin EC) 81 Mg Tablet.dr, 81 MG PO DAILY, TAB 11/14/24 Budesonide/Glycopyr/Formoterol (Breztri Aerosphere Inhaler) 160 Mcg-9 Mcg-4.8 Mcg/Actuation Hfa.aer.ad, 2 PUFF IH DAILY 11/14/24 Time spent arranging discharge: 31-60 minutes PRASANNA OHRVATH MD Dec 28, 2024 11:11
--- NOTE | 2024-12-28 12:08 | NUR ---
DCP: HOME Pt currently lives with gabriella Butler [phone]. Pt does not have any insecurities with food, correction, and/or utilities. Pt does not have any DME, home health, or provider services. Pt is able to complete ADLs independently. PCP is Dr. Mt Nicole and uses [facility] for any RX needs. At [place] pt will go home and family will assist with transportation. Addendum: 12/28/24 at 1213 by GENARO AHUJA SS Amended: Links added.
--- NOTE | 2024-12-28 13:29 | PN ---
[facility] CARDIOLOGY PROGRESS NOTE Date Patient Seen: Dec 28, 2024 Time of Visit: 13:19 Interval History: This 74-year-old white male, patient of Dr. Mitul Paz, with a history of hypertension, hyperlipidemia, BPH, remote right hemispheric CVA, prior tobacco a buse currently abstinent, COPD, CAD s/p PTCA/RAJ of the proximal RCA with a 4.0 x 18 [employer] [place] and mid RCA with a 4.0 x 38 mm [employer] [place] RAJ 11/18/2024 underwent carotid angiography 11/18/2024 demonstrating a completely occluded right internal carotid with a 90-95% left internal carotid stenosis. Patient was admitted for elective TKR which he underwent without complications 12/27/2024. This morning he is awake and alert, comfortable, and anxious to be discharged home. There has been no bleeding from his right common femoral cath site and no bleeding from his left lower neck surgical incision. He denies neurologic symptoms. Physical Examination: GENERAL: No acute distress. HEAD: Normal with no signs of head trauma. EYES: PERRLA, EOMI, conjunctiva and sclera normal. NECK: Supple without JVD. Surgical incision is dry and intact and there was no bleeding or hematoma. There is no tenderness, lymphadenopathy, or masses. No thyromegaly. Normal carotid upstrokes. LUNGS: Clear breath sounds bilaterally. No wheezes, or rhonchi. HEART: Normal rate and rhythm. Normal S1 and S2 without murmurs, gallop or rub. VASC: Peripheral pulses +2 bilaterally. EXT: No clubbing, cyanosis or edema. NEURO: Awake, alert, and oriented x3. No focal neurological deficits noted. Laboratory: Hematology Labs: Test 12/28/24 04:06 12/27/24 14:28 Range/Units White Blood Count 5.2 4.8-10.8 K/uL Red Blood Count 3.79 L 4.50-6.20 MIL/uL Hemoglobin 13.6 L 14.0-18.0 g/dL Hematocrit 40.5 L 42-54 % Mean Corpuscular Volume 106.9 H 79-99 fL Mean Corpuscular Hemoglobin 35.9 H 27.0-33.0 pg Mean Corpuscular Hemoglobin Concent 33.6 32.0-36.0 g/dL Red Cell Distribution Width 14.5 11.0-15.5 % Platelet Count 110 L 130-400 K/uL Mean Platelet Volume 9.2 7.5-10.5 fL Immature Granulocyte % (Auto) 0.6 0-1 % Neutrophils (%) (Auto) 75.4 40.0-77.0 % Lymphocytes (%) (Auto) 13.7 L 21.0-51.0 % Monocytes (%) (Auto) 9.7 3.0-13.0 % Eosinophils (%) (Auto) 0.6 0.0-8.0 % Basophils (%) (Auto) 0.0 0.0-5.0 % Neutrophils # (Auto) 4.0 1.8-7.7 K/uL Lymphocytes # (Auto) 0.7 L 1.0-4.8 K/uL Monocytes # (Auto) 0.5 0.1-1.0 K/uL Eosinophils # (Auto) 0.03 0.00-0.70 K/uL Basophils # (Auto) 0.00 0.00-0.20 K/uL Absolute Immature Granulocyte (auto 0.03 0-1 K/uL Nucleated Red Blood Cells 0.0 0.0-0.19 % Red Blood Cell Morphology See comments White Cell Morphology Comment See comments Chemistry Labs: Test 12/28/24 04:06 Range/Units Sodium Level 146 H 136-145 mmol/L Potassium Level 3.5 3.5-5.1 mmol/L Chloride Level 113 H 101-111 mmol/L Carbon Dioxide Level 24 21-32 mmol/L Blood Urea Nitrogen 10 7-18 mg/dL Creatinine 0.7 0.5-1.3 mg/dL Glomerular Filtration Rate Calc 97 >90 mL/min Random Glucose 98 70-105 mg/dL Total Calcium 7.5 L 8.5-10.1 mg/dL Magnesium Level 1.80 1.80-2.40 mg/dL Total Bilirubin 0.8 0.2-1.0 mg/dL Aspartate Amino Transf (AST/SGOT) 32 10-37 U/L Alanine Aminotransferase (ALT/SGPT) 30 12-78 U/L Alkaline Phosphatase 57 50-136 U/L Total Protein 5.6 L 6.0-8.3 g/dL Albumin 3.1 L 3.5-5.0 g/dL Vitamin B12 Level 512 193-986 pg/mL Folic Acid (LAB) 12.20 2-20 ng/mL Thyroid Stimulating Hormone (TSH) 0.57 0.36-3.74 uIU/mL Coagulation Labs: Test 12/27/24 14:28 Range/Units Prothrombin Time 11.4 9.6-11.6 SEC Prothromb Time International Ratio 1.08 0.85-1.15 Activated Partial Thromboplast Time 26.8 26.3-35.5 SEC Diagnostics / Radiology: Impression and Plan: Carotid artery disease status post remote CVA approximately 2010: Severe bilateral carotid artery disease by carotid angiogram 11/18/2024 with an occluded right internal carotid artery and a 90-95% left internal carotid stenosis: Status post successful left internal carotid artery TCAR by Dr. Corinna Mast 12/27/2024: -continue clopidogrel lifelong -continue Eliquis anticoagulation for paroxysmal atrial fibrillation -discontinue aspirin antiplatelet therapy to reduce bleeding risk -continued avoidance of tobacco and continue atorvastatin statin therapy to goal LDL cholesterol less than 70 Paroxysmal atrial fibrillation on chronic Eliquis anticoagulation: -continue long-term Eliquis anticoagulation 5 mg b.i.d., beginning 12/29/2024 Coronary artery disease status post shockwave lithotripsy, PTCA/RAJ to the proximal RCA with a 4.0 x 18 mm sanjay [place] RJA and to the mid RCA with a 4.0 x 38 mm sanjay [place] RAJ 11/18/2024. Cardiac catheterization at that time demonstrated nonobstructive disease in the mid left circumflex, mid diagonal one, and a diffusely diseased apical LAD, managed medically: -continue clopidogrel 75 mg daily -continue avoidance of tobacco and continue atorvastatin 20 mg daily targeting an LDL less than 70 Comorbidities: Hypertension Dyslipidemia BPH Remote CVA 2010 Prior tobacco abuse, currently abstinent COPD CARMEN KENNEDY MD Dec 28, 2024 13:29
== END 2024-12-28 14:27 | disposition home or self-care (01) | DRG 35 ==
LOC: DAHIP 12-27 05:25 → EDSTATUS 12-27 08:00 → 2CV 12-27 11:14
PROVIDERS: ADMIT Internal Medicine; ATTEND Internal Medicine
PROC: 037J3DZ Dilation of Left Common Carotid Artery with Intraluminal Device, Percutaneous Approach (ICD-10-PCS; principal; 2024-12-27 08:00)
PROC: B3171ZZ Fluoroscopy of Left Internal Carotid Artery using Low Osmolar Contrast (ICD-10-PCS; 2024-12-27 08:00)
DX: I65.22 Occlusion and stenosis of left carotid artery (principal); I48.20 Chronic atrial fibrillation, unspecified; I50.32 Chronic diastolic (congestive) heart failure; E66.01 Morbid (severe) obesity due to excess calories; E78.5 Hyperlipidemia, unspecified; I25.10 Atherosclerotic heart disease of native coronary artery without angina pectoris; I11.0 Hypertensive heart disease with heart failure; J44.9 Chronic obstructive pulmonary disease, unspecified; N40.0 Benign prostatic hyperplasia without lower urinary tract symptoms; Z68.30 Body mass index [BMI] 30.0-30.9, adult; Z79.01 Long term (current) use of anticoagulants; Z85.820 Personal history of malignant melanoma of skin; Z86.12 Personal history of poliomyelitis; Z86.73 Personal history of transient ischemic attack (TIA), and cerebral infarction without residual deficits; Z87.891 Personal history of nicotine dependence; Z98.61 Coronary angioplasty status
CPT/HCPCS: 36415; 37215; 71045; 80048; 80053; 81003; 82607; 82746; 83735; 84443; 85025; 85347; 85610; 85730; 86850; 86900; 86901; 86923; 93005; 94664; A4606; G0378; J0360; J0461; J0690; J1265; J1644; J2250; J2371; J2405; J2704; J2710; J3010; J3475; J3490; Q9967; A4215; A4216; A4221; A4222; A4223; A4351; A4649; A4663; C1713; C1760; C1769; C1876; C1884